=== PATIENT | male | born 1960 | race Caucasian/White ===

== ENCOUNTER 2023-05-21 06:14 | Day surgery (SDC) | payer BC, SELFPAY ==
--- NOTE | 2023-05-17 09:35 | P.CONAN_ITS ---
Documented by User: Torie Chadwick NP 05/17/23 09:36 HPI - Anesthesia Eval Consult details Narrative: 63yo M for Colonoscopy REPLACED BY [facility] Past Medical History Medical History CVA (cerebral vascular accident) Diabetes Sleep apnea Elevated cholesterol HTN (hypertension) Surgical History Surgical History Hx of cholecystectomy History of back surgery Hx of hand surgery Hx of hernia repair History of esophagogastroduodenoscopy (EGD) H/O colonoscopy Social History Social History Patient Tobacco Use Status: Former Tobacco user Quit Date: >10 yr ago Tobacco use type: Cigarette Use of substances other than those prescribed or required for medical reasons: No Are you DNR?: No Advance Directives: No Advance Directives Information Provided: Yes Meds Allergies Allergy/AdvReac Type Severity Reaction Status Date / Time Penicillins Allergy Unknown Unknown Verified 03/22/23 10:02 Home Medications Medication Instructions Recorded Confirmed Last Taken Type amlodipine 10 mg tablet 10 mg PO DAILY 03/22/23 Unknown History aspirin 81 mg tablet,delayed 81 mg PO DAILY 03/22/23 Unknown History release atenolol 1 tab PO DAILY 03/22/23 05/21/23 History atorvastatin 80 mg tablet 80 mg PO BEDTIME 03/22/23 Unknown History cyclobenzaprine 10 mg tablet 10 mg PO TID PRN Muscle Spasm 03/22/23 Unknown History escitalopram oxalate 10 mg tablet 10 mg PO DAILY 03/22/23 Unknown History gabapentin 300 mg capsule 300 mg PO DAILY 03/22/23 Unknown History lisinopril 1 tab PO DAILY 03/22/23 Unknown History losartan 100 mg tablet 100 mg PO DAILY 03/22/23 Unknown History metformin 500 mg tablet 500 mg PO DAILY 03/22/23 Unknown History omega 0-mmj-vcz-fish oil 1,000 mg 1 cap PO DAILY 03/22/23 Unknown History (120 mg-180 mg) capsule (Fish Oil) Assessment and Plan Assessment Anesthesia Assessment: Chart Reviewed Documented by User: Candida Toure MD 05/21/23 07:47 REPLACED BY [facility] Past Medical History Medical History CVA (cerebral vascular accident) Diabetes Sleep apnea Elevated cholesterol HTN (hypertension) Surgical History Surgical History Hx of cholecystectomy History of back surgery Hx of hand surgery Hx of hernia repair History of esophagogastroduodenoscopy (EGD) H/O colonoscopy History of Problems with Anesthesia: No Social History Social History Patient Tobacco Use Status: Former Tobacco user Quit Date: >10 yr ago Tobacco use type: Cigarette Use of substances other than those prescribed or required for medical reasons: No Are you DNR?: No Advance Directives: No Advance Directives Information Provided: Yes Meds Allergies Allergy/AdvReac Type Severity Reaction Status Date / Time Penicillins Allergy Unknown Unknown Verified 03/22/23 10:02 Home Medications Medication Instructions Recorded Confirmed Last Taken Type amlodipine 10 mg tablet 10 mg PO DAILY 03/22/23 Unknown History aspirin 81 mg tablet,delayed 81 mg PO DAILY 03/22/23 Unknown History release atenolol 1 tab PO DAILY 03/22/23 05/21/23 History atorvastatin 80 mg tablet 80 mg PO BEDTIME 03/22/23 Unknown History cyclobenzaprine 10 mg tablet 10 mg PO TID PRN Muscle Spasm 03/22/23 Unknown History escitalopram oxalate 10 mg tablet 10 mg PO DAILY 03/22/23 Unknown History gabapentin 300 mg capsule 300 mg PO DAILY 03/22/23 Unknown History lisinopril 1 tab PO DAILY 03/22/23 Unknown History losartan 100 mg tablet 100 mg PO DAILY 03/22/23 Unknown History metformin 500 mg tablet 500 mg PO DAILY 03/22/23 Unknown History omega 1-hyi-gls-fish oil 1,000 mg 1 cap PO DAILY 03/22/23 Unknown History (120 mg-180 mg) capsule (Fish Oil) Exam Airway Mallampati Class: III TM Dist: >3cm Neck ROM: Full Partial: Upper Loose/Missing/Broken Teeth: Yes, Upper and Lower Heart: RRR Lungs: CTA Assessment and Plan Assessment Anesthesia Assessment: Anesthesia Plan Discussed Final Anesthetic Review History of Problems with Anesthesia: No NPO: Yes ASA Class: III Final Preanesthetic Review: Meds/Allgs Chart Reviewed, Consent Obtained/Reviewed and Anes Risks/Benef Reviewed Patient Risk: Intermediate Procedure Risk: Low Anesthetic Plan Anesthetic Plan: MAC: Disposition: Standard PACU
[2023-05-21 06:46] VITALS: BMI 36.7
[2023-05-21 06:51] VITALS: BP 138/82; PULSE 75; RESP 16; TEMP 37.1; O2SAT 98
[2023-05-21] MEDS: Lactated Ringers 1,000 ML 100 ML IVCONT (07:15)
--- NOTE | 2023-05-21 07:22 | MHC.SHP ---
Pre-Procedural Eval Section A Date of Service: 05/21/23 Section B Chief Complaint: Encounter for screening for malignant neoplasm of Details of Present Illness: see H&P no changes Relevant Family History (Specify if Yes): No Relevant Social History: None Present Medications: see Short Stay Collaborative assessment Medical History: No relevant PMH History of Previous Operations: No relevant previous surgery Allergies: Allergies Allergy/AdvReac Type Severity Reaction Status Date / Time Penicillins Allergy Unknown Unknown Verified 03/22/23 10:02 Review of Systems Sugical H&P ROS: Negative: Constitution, Cardiovascular, Respiratory, Neurological, Psychiatric, Hem-Onc, Allergic/Immunologic, Gastrointestinal, Genitourinary, Musculoskeletal, Integumentary, Endocrine and Eyes/Ears/Nose/Throat Exam Surgical H&P Exam: Normal: HEENT, Normal: Heart, Normal: Lungs, Normal: Extremities, Normal: Abdomen, Normal: Skin and Normal: Neurological Plan Diagnosis/Plan: Unchanged I have reviewed the history and physical and performed a pertinent physical examination on my patient. No changes have occurred unless specified. Time Spent With Patient Time: Total time managing care of this patient today ____ minutes.
[2023-05-21 08:06] LABS: Glucose, Whole Blood 173 mg/dL (60-115)
[2023-05-21 08:28] VITALS: BP 123/52; PULSE 73; RESP 18; TEMP 36.8; O2SAT 97
--- NOTE | 2023-05-21 08:41 | OP_ITS ---
DATE OF SERVICE: 05/21/2023 SURGEON: Hoang Edwards MD INDICATIONS: Colon cancer screening and prior history of adenomatous colon polyps. PREOPERATIVE DIAGNOSIS: POSTOPERATIVE DIAGNOSIS: PROCEDURE PERFORMED: Colonoscopy to the terminal ileum with biopsy and snare polypectomy. ESTIMATED BLOOD LOSS: COMPLICATIONS: ANESTHESIA: Monitored anesthesia care. ASSISTANTS: SPECIMENS: DESCRIPTION OF PROCEDURE: A history and physical were performed. The risks and benefits of the procedure were explained to the patient. Informed consent was obtained. The patient was placed in the left lateral decubitus position. A digital rectal exam was performed and was found to be normal. The Olympus pediatric video colonoscope was introduced into the rectum and advanced to the cecum. The cecum was identified by transillumination, palpation, identification of ileocecal valve. Examination was performed, and the scope was removed. He tolerated the procedure well and was returned to recovery area in stable condition. FINDINGS: The visualized colonic mucosa was normal. The terminal ileum was not examined. There was a moderate amount of liquid stool, which was washed and suctioned, mainly in the descending and sigmoid colon. This did limit the examination for detection of small polyps. Lesser amounts of stool were present throughout the remainder of the colon. Three polyps were identified and removed using combination of biopsy and snare polypectomy. The largest measured approximately 8 mm. These were located in the hepatic flexure, cecum and right colon. Retroflexed examination showed moderate-sized internal hemorrhoids. IMPRESSION: Colon polyps. RECOMMENDATIONS: 1. Follow up the biopsy results. 2. Consider repeat colonoscopy with 2-day prep in approximately 3 years, pending results. MD C[place]AND Ruiz/SHANNAL / [id number]
[2023-05-21 08:43] VITALS: BP 118/58; PULSE 67; RESP 18; TEMP 36.8; O2SAT 95
== END 2023-05-21 09:19 | disposition home or self-care (01) ==
PROVIDERS: PCP Physician Assistant Medical; Visit Provider Internal Medicine Gastroenterology
PROC: 0DJD8ZZ Inspection of Lower Intestinal Tract, Via Natural or Artificial Opening Endoscopic (ICD-10-PCS; CPT 45378; principal; 2023-05-21 07:30)
DX: Z12.11 Encounter for screening for malignant neoplasm of colon (principal); Z86.010 Personal history of colon polyps; Z80.0 Family history of malignant neoplasm of digestive organs; D12.2 Benign neoplasm of ascending colon; K51.40 Inflammatory polyps of colon without complications; K64.8 Other hemorrhoids; G47.33 Obstructive sleep apnea (adult) (pediatric); I10 Essential (primary) hypertension; E78.00 Pure hypercholesterolemia, unspecified; E11.9 Type 2 diabetes mellitus without complications; I69.998 Other sequelae following unspecified cerebrovascular disease; G57.92 Unspecified mononeuropathy of left lower limb; Z79.82 Long term (current) use of aspirin; Z79.84 Long term (current) use of oral hypoglycemic drugs; Z79.899 Other long term (current) drug therapy; Z98.890 Other specified postprocedural states; Z88.0 Allergy status to penicillin; Z87.891 Personal history of nicotine dependence
CPT/HCPCS: 45385; 45380; 82947; 88305; J2704